=== PATIENT | female | born 1980 | race Caucasian/White ===

== ENCOUNTER 2017-05-10 22:23 | Emergency (ER) | payer OTHER ==
[~2017-05-10] VITALS: Ht 149.9 cm; Wt 63.6 kg
[2017-05-10 22:26] VITALS: BP 115/55
--- NOTE | 2017-05-10 22:35 | NUR ---
PT CAME IN C/O DIFFICULTY URINATING AND BURNING SENSATION WHEN URINATING. PAIN 5/10. AFEBRILE. RR EVEN AND UNLABORED. BILATERAL LUNGS SOUND CLEAR. ABDOMEN SOFT AND NON TENDER. DENIES MEDICAL HISTORY. ER MD MADE AWARE.
--- NOTE | 2017-05-10 22:49 | NUR ---
DR. SINGLETARY EVALUATING PT AT THIS TIME.
[2017-05-10] MEDS ORDERED: PHENAZOPYRIDINE 100 MG TAB PO ONE (23:15)
[2017-05-10] MEDS ORDERED: CIPROFLOXACIN 250 MG TAB PO ONE (23:15)
--- NOTE | 2017-05-10 23:21 | NUR ---
ADMINISTERED MEDS ORDERED. PT DENIES ANY ALLERGIES TO MEDS. TOLERATED WELL.
[2017-05-10 23:43] VITALS: BP 110/64
--- NOTE | 2017-05-10 23:43 | NUR ---
Patient discharged with v/s stable. Written and verbal after care instructions given and explained. Patient alert, oriented and verbalized understanding of instructions. Ambulatory with steady gait. All questions addressed prior to discharge. ID band removed. Patient advised to follow up with PMD. Rx of PHENAZOPYRIDINE HYDROCHLORIDE AND CIPRO given. Patient educated on indication of medication including possible reaction and side effects. Opportunity to ask questions provided and answered.
== END 2017-05-10 23:43 | disposition home or self-care (01) ==
LOC: MED 22:23
DX: N39.0 Urinary tract infection, site not specified (principal)
CPT/HCPCS: 81002; 81025; 87086; 87186; 99283; 99284